=== PATIENT | female | born 1965 | race Caucasian/White ===

== ENCOUNTER 2020-03-25 13:52 | Emergency (ER) | payer SELFPAY ==
[~2020-03-25] VITALS: Ht 172.7 cm; Wt 76.0 kg
[2020-03-25 13:58] VITALS: BP 130/81
--- NOTE | 2020-03-25 14:31 | PHYS DOC ---
Past History Past Medical History: No Pertinent History Past Surgical History: Alcohol Use: Occasionally Drug Use: None General Adult EDM: Chief Complaint: LOWEREXTREMITY INJURY HPI: HPI: 55-year-old female presents with concern for cellulitis of the left lower extremity. She got 2 spider bites in the back of her lower leg and then cut with a coat traveler changer within a couple days of each other in similar locations. This all happened a couple weeks ago. She presents today because she is concerned with how long it is taking to heal. She does not have a fever or chills. The wounds are improving. They are shrinking but not expanding. She has no other complaints. Review of Systems: Review of Systems: Constitutional: Denies fever or chills Eyes: Denies change in visual acuity HENT: Denies nasal congestion or sore throat Respiratory: Denies cough or shortness of breath Cardiovascular: Denies chest pain or edema GI: Denies abdominal pain, nausea, vomiting, bloody stools or diarrhea : Denies dysuria Musculoskeletal: Denies back pain or joint pain Integument: Wounds left lower extremity Neurologic: Denies headache, focal weakness or sensory changes Endocrine: Denies polyuria or polydipsia Lymphatic: Denies swollen glands Psychiatric: Denies depression or anxiety Heart Score: Risk Factors: Risk Factors: DM, Current or recent (<one month) smoker, HTN, HLP, family history of CAD, obesity. Risk Scores: Score 0 - 3: 2.5% MACE over next 6 weeks - Discharge Home Score 4 - 6: 20.3% MACE over next 6 weeks - Admit for Clinical Observation Score 7 - 10: 72.7% MACE over next 6 weeks - Early Invasive Strategies Allergies: Allergies: Allergies Coded Allergies Type Severity Reaction Last Updated Verified Penicillins Allergy Intermediate Hives 11/27/14 Yes Physical Exam: PE: Constitutional: Well developed, well nourished, no acute distress, non-toxic appearance. [] HENT: Normocephalic, atraumatic, bilateral external ears normal, oropharynx [address], no oral exudates, nose normal. [] Eyes: PERRLA, EOMI, conjunctiva normal, no discharge. [] Neck: Normal range of motion, no tenderness, supple, no stridor. [] Cardiovascular:Heart rate regular rhythm, no murmur [] Lungs & Thorax: Bilateral breath sounds clear to auscultation [] Abdomen: Bowel sounds normal, soft, no tenderness, no masses, no pulsatile masses. [] Skin: Warm, dry, pink borders around wounds of the anterior and posterior left lower leg. No sign of infection. [] Back: No tenderness, no CVA tenderness. [] Extremities: No tenderness, no cyanosis, no clubbing, ROM intact, no edema. [] Neurologic: Alert and oriented X 3, normal motor function, normal sensory function, no focal deficits noted. [] Psychologic: Affect normal, judgement normal, mood normal. [] EKG: EKG: [] Radiology/Procedures: Radiology/Procedures: [] Course & Med Decision Making: Course & Med Decision Making Pertinent Labs and Imaging studies reviewed. (See chart for details) The patient has been keeping these wounds covered and using triple antibiotic. Honestly I think she is been doing a great job. This is just delayed healing due to the type of wound. It does not appear infected. The borders of the wound look good. I do not believe any further treatment would be beneficial. She is stable for discharge at this time. [] Dragon Disclaimer: Dragon Disclaimer: This electronic medical record was generated, in whole or in part, using a voice recognition dictation system. Departure Departure: Impression: Primary Impression: Abrasion, left lower leg, initial encounter Disposition: 01 HOME/RESIDENCE PRIOR TO ADM Condition: STABLE Referrals: PCP,NO (PCP) Patient Instructions: Abrasion, [id number] Justification of Admission: Justification of Admission: Justification of Admission Dx: N/A GUILLERMO SINGH DO Mar 25, 2020 14:31
== END 2020-03-25 14:36 | disposition home or self-care (01) ==
LOC: ER 13:52
DX: S80.812A Abrasion, left lower leg, initial encounter (principal); Z88.0 Allergy status to penicillin; W26.8XXA Contact with other sharp object(s), not elsewhere classified, initial encounter; Y93.89 Activity, other specified; Y92.89 Other specified places as the place of occurrence of the external cause; Y99.8 Other external cause status
CPT/HCPCS: 99281

== ENCOUNTER 2020-09-07 10:39 | Inpatient (IN) | payer SELFPAY ==
[2020-09-07] VITALS (11 sets, daily range): BP systolic 88–126; BP diastolic 61–95
[~2020-09-07] VITALS: Ht 170.2 cm; Wt 83.2 kg
--- NOTE | 2020-09-07 10:46 | PHYS DOC ---
Past History Past Medical History: No Pertinent History Past Surgical History: Alcohol Use: Occasionally Drug Use: None Adult General Chief Complaint Chief Complaint: ABDOMINAL PAIN HPI HPI Patient is a 55-year-old female presenting for substernal chest pressure. Nothing known makes better or worse. Onset was proximately 2 hours prior to arrival and worsening. Pain is focal nonradiating and "feels like there is a ball underneath my breastbone". She has never had anything like this before. Associated symptoms include increased anxiety, shortness of breath and nausea. Patient denies COVID-19 contact, fever, syncope, hemoptysis, history of blood clot, lower extremity edema, urinary symptoms, changes in motor or sensory function. She admits history of tobacco use, no alcohol or illicit drug use. Denies any recent febrile illness, no history of passing out with physical exertion, no family history of early cardiac disease. Review of Systems Review of Systems Fourteen body systems of review of systems have been reviewed. See HPI for pertinent positives and negative responses, other gunter all other systems are negative, non-pertinent or non-contributory Current Medications Current Medications Current Medications Medications (Trade) Dose Ordered Sig/Gianluca Start Time Stop Time Status Last Admin Dose Admin Aspirin (Aspirin Chewable) 324 mg 1X ONCE 09/07/20 11:00 09/07/20 11:08 DC 09/07/20 11:11 Aspirin (Aspirin Enteric Coated) 81 mg STK-MED ONCE 09/07/20 11:06 09/07/20 11:06 DC Diltiazem HCl (Cardizem Iv Push) 20 mg 1X ONCE 09/07/20 11:00 09/07/20 11:07 DC 09/07/20 11:03 Diltiazem HCl 125 mg/Sodium Chloride 125 ml @ 5 mls/hr CONT PRN 09/07/20 11:15 09/07/20 12:28 Heparin Sodium (Porcine) (Heparin Sodium) 2,050 unit PRN Q6HRS PRN 09/07/20 12:15 09/07/20 13:25 DC Heparin Sodium/ Dextrose 250 ml @ 9.924 mls/ hr CONT PRN 09/07/20 12:15 09/07/20 13:25 DC Nitroglycerin (Nitrostat) 0.4 mg PRN Q5MIN PRN 09/07/20 12:45 09/08/20 12:44 Allergies Allergies Allergies Coded Allergies Type Severity Reaction Last Updated Verified Penicillins Allergy Intermediate Hives 11/27/14 Yes Physical Exam Physical Exam Constitutional: Well developed, well nourished, no acute distress, non-toxic appearance. HENT: Normocephalic, atraumatic, bilateral external ears normal, oropharynx moist, no oral exudates, nose normal. Eyes: PERRLA, EOMI, conjunctiva normal, no discharge. Neck: Normal range of motion, no tenderness, supple, no stridor. Cardiovascular: Heart rate tachycardic, irregular rhythm, no murmurs rubs or gallops Lungs & Thorax: Increased work of breathing, accessory muscle use of neck and abdomen, crackles bilaterally and mild respiratory distress Abdomen: Bowel sounds normal, soft, no tenderness, no masses, no pulsatile m asses. Nonsurgical abdomen, no peritoneal signs Skin: Warm, dry, no erythema, no rash. Back: No tenderness, no CVA tenderness. Extremities: No tenderness, no cyanosis, no clubbing, ROM intact, no edema. Neurologic: Alert and oriented X 3, grossly normal motor & sensory function, no focal deficits noted. Psychologic: Anxious affect and mood Current Patient Data Vital Signs Vital Signs Date Time Temp Pulse Resp B/P (MAP) Pulse Ox O2 Delivery O2 Flow Rate FiO2 09/07/20 11:03 188 139/91 09/07/20 10:48 97.4 178 26 139/91 (107) 99 Lab Results Laboratory Tests Test 09/07/20 10:55 White Blood Count 12.4 x10^3/uL Red Blood Count 4.74 x10^6/uL Hemoglobin 14.5 g/dL Hematocrit 44.3 % Mean Corpuscular Volume 93 fL Mean Corpuscular Hemoglobin 31 pg Mean Corpuscular Hemoglobin Concent 33 g/dL Red Cell Distribution Width 13.5 % Platelet Count 191 x10^3/uL Neutrophils (%) (Auto) 63 % Lymphocytes (%) (Auto) 28 % Monocytes (%) (Auto) 8 % Eosinophils (%) (Auto) 0 % Basophils (%) (Auto) 1 % Neutrophils # (Auto) 7.8 x10^3uL Lymphocytes # (Auto) 3.4 x10^3/uL Monocytes # (Auto) 0.9 x10^3/uL Eosinophils # (Auto) 0.0 x10^3/uL Basophils # (Auto) 0.1 x10^3/uL Prothrombin Time 11.0 SEC Prothromb Time International Ratio 1.1 Activated Partial Thromboplast Time 22 SEC Sodium Level 136 mmol/L Potassium Level 4.7 mmol/L Chloride Level 104 mmol/L Carbon Dioxide Level 22 mmol/L Anion Gap 10 Blood Urea Nitrogen 24 mg/dL Creatinine 0.9 mg/dL Estimated GFR (Cockcroft-Gault) 65.0 BUN/Creatinine Ratio 27 Glucose Level 168 mg/dL Calcium Level 9.0 mg/dL Magnesium Level 2.0 mg/dL Total Bilirubin 0.6 mg/dL Aspartate Amino Transf (AST/SGOT) 32 U/L Alanine Aminotransferase (ALT/SGPT) 59 U/L Alkaline Phosphatase 89 U/L Troponin I Quantitative 0.023 ng/mL [id number]-[id number]-Type Natriuretic Peptide 4129 pg/mL Total Protein 7.5 g/dL Albumin 3.7 g/dL Albumin/Globulin Ratio 1.0 Current Medications Medications (Trade) Dose Ordered Sig/Gianluca Route PRN Reason Start Time Stop Time Status Last Admin Dose Admin Diltiazem HCl (Cardizem Iv Push) 25 mg STK-MED ONCE IVP 09/07/20 10:56 09/07/20 10:56 DC Aspirin (Aspirin Chewable) 324 mg 1X ONCE PO 09/07/20 11:00 09/07/20 11:08 DC 09/07/20 11:11 Diltiazem HCl (Cardizem Iv Push) 20 mg 1X ONCE IVP 09/07/20 11:00 09/07/20 11:07 DC 09/07/20 11:03 Diltiazem HCl 125 mg/Sodium Chloride 125 ml @ 5 mls/hr CONT PRN IV SEE I/O RECORD 09/07/20 11:15 09/07/20 12:28 Aspirin (Aspirin Enteric Coated) 81 mg STK-MED ONCE PO 09/07/20 11:06 09/07/20 11:06 DC Heparin Sodium/ Dextrose 250 ml @ 9.924 mls/ hr CONT PRN IV SEE I/O RECORD 09/07/20 12:15 09/07/20 13:25 DC Heparin Sodium (Porcine) (Heparin Sodium) 4,000 unit 1X ONCE IV 09/07/20 12:15 09/07/20 13:25 DC Heparin Sodium (Porcine) (Heparin Sodium) 2,050 unit PRN Q6HRS PRN IV FOR PTT LESS THAN 24 SECONDS 09/07/20 12:15 09/07/20 13:25 DC Nitroglycerin (Nitrostat) 0.4 mg PRN Q5MIN PRN SL CHEST PAIN 09/07/20 12:45 09/08/20 12:44 EKG EKG EKG ordered and interpreted by myself at 1103 hrs. as an irregular rhythm with a ventricular rate of 182 bpm, prolonged QTC at 470 otherwise unremarkable intervals, right axis deviation, T wave inversions noted in leads III, aVF. No STEMI Radiology/Procedures Radiology/Procedures EXAM: Chest, single view. HISTORY: Shortness of breath. COMPARISON: None. FINDINGS: A frontal view of the chest is obtained. There is bilateral multifocal interstitial infiltrate. There is cardiomegaly. There is no consolidation, pleural effusion or pneumothorax. There is a healed left clavicle fracture. IMPRESSION: Bilateral multifocal interstitial infiltrate and cardiomegaly. Electronically signed by: Suzie Shell MD (09/07/2020 11:19 AM) [id number] Heart Score HEART Score for Chest Pain: HEART Score for Chest Pain Response (Comments) Value History Moderately Suspicious 1 ECG Nonspecific Repolarizatio 1 Age >45 - < 65 1 Risk Factors 1 or 2 Risk Factors 1 Troponin < Normal Limit 0 Total 4 Risk Factors: Risk Factors: DM, Current or recent (<one month) smoker, HTN, HLP, family history of CAD, obesity. Risk Scores: Risk Factors: DM, Current or recent (<one month) smoker, HTN, HLP, family history of CAD, obesity. Course & Med Decision Making Course & Med Decision Making Pertinent Labs and Imaging studies reviewed. (See chart for details) Discussed most likely diagnosis of new onset atrial fibrillation with RVR. I am concerned about potential new diagnosis of heart failure Patient responded to ER intervention, tolerated Cardizem bolus and subsequent drip with adequate rate control. I discussed need for continued medical management and cardiology consultation I discussed case with manager medical device at [facility], joint decision to admit to [facility] for further diagnostic work-up and medical management which would include continued anticoagulation and echocardiogram I contacted hospitalist, Dr. Martin, at [facility] who agreed for need of admission and accepted patient under his care. He requested that I discontinue heparin drip in turn for Lovenox I updated patient on proposed plan of care, she was amenable for admission for continued work-up. All questions and concerns addressed prior to ER transport to [facility] for admission Critical Care Time This patient required critical care. Due to the fact that the patient required a significant amount of one on one physician - patient contact time, ordering and review of studies, arranging urgent treatment with development of a management plan, evaluation of patients response to treatment with frequent reassessments, and discussions with other providers this patient required critical care time in excess of 30 minutes. Critical care time was indicated due to the inherent instability and/or potential for instability in this patient. The critical care time that is allocated to this patient is above and beyond any time spent on any other billable procedures performed on this patient. Dragon Disclaimer Dragon Disclaimer This electronic medical record was generated, in whole or in part, using a voice recognition dictation system. Departure Departure: Impression: Primary Impression: Atrial fibrillation with RVR Additional Impression: New onset of congestive heart failure Disposition: 09 ADMITTED INPT THIS HOSP Admitting Physician: Jackson Martin Condition: STABLE Referrals: PCP,NO (PCP) Problem Qualifiers SNEHAL RYAN DO Sep 07, 2020 10:46
[2020-09-07] MEDS ORDERED: dilTIAZem 25 MG/5 ML VIAL IVP ONE ×2 (10:56→11:00)
[2020-09-07] MEDS ORDERED: ASPIRIN CHEWABLE 81 MG TABLET. PO ONE (11:00)
--- NOTE | 2020-09-07 11:04 | EKG ---
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
[2020-09-07] MEDS ORDERED: ASPIRIN ENTERIC COATED 81 MG TABLET.DR. PO ONE (11:06)
[2020-09-07] MEDS: dilTIAZem VIAL 125 MG in IV NORMAL SALINE 100ML 100 ML IV PRN ×4 (11:19→12:28)
[2020-09-07 11:21] LABS: BASO # 0.1 x10^3/uL (0.0-0.2); BASO % 1 % (0-3); EOS % 0 % (0-3); HEMATOCRIT 44.3 % (36.0-47.0); HEMOGLOBIN 14.5 g/dL (12.0-15.5); LYMPH # 3.4 x10^3/uL (1.0-4.8); LYMPH % 28 % (24-48); MEAN CORPUSCULAR HEMOGLOBIN 31 pg (25-35); MEAN CORPUSCULAR HGB CONC 33 g/dL (31-37); MEAN CORPUSCULAR VOLUME 93 fL (79-100); MONO # 0.9 x10^3/uL (0.0-1.1); MONO % 8 % (0-9); NEUT # 7.8 x10^3uL (1.8-7.7); NEUT % 63 % (31-73); PLATELET COUNT 191 x10^3/uL (140-400); RED BLOOD COUNT 4.74 x10^6/uL (3.50-5.40); RED CELL DISTRIBUTION WIDTH 13.5 % (11.5-14.5); WHITE BLOOD COUNT 12.4 x10^3/uL (4.0-11.0)
--- NOTE | 2020-09-07 11:22 | RAD ---
EXAM: Chest, single view. HISTORY: Shortness of breath. COMPARISON: None. FINDINGS: A frontal view of the chest is obtained. There is bilateral multifocal interstitial infiltr ate. There is cardiomegaly. There is no consolidation, pleural effusion or pneumothorax. There is a h ealed left clavicle fracture. IMPRESSION: Bilateral multifocal interstitial infiltrate and cardiomegaly. Electronically signed by: Suzie Shell MD (09/07/2020 11:19 AM) [id number]
[2020-09-07] MEDS ORDERED: HEPARIN for IV BOLUS 10,000 UNIT/10 ML VIAL. IV ONE (12:15)
[2020-09-07] MEDS ORDERED: HEPARIN 25,000UTS/250ML PREMIX 250 ML IV PRN ×2 (12:15→18:00)
[2020-09-07] MEDS ORDERED: HEPARIN for IV BOLUS 10,000 UNIT/10 ML VIAL. IV PRN (12:15)
[2020-09-07 12:23] LABS: ALBUMIN 3.7 g/dL (3.4-5.0); CREATININE 0.9 mg/dL (0.6-1.0); POTASSIUM 4.7 mmol/L (3.5-5.1); TOTAL BILIRUBIN 0.6 mg/dL (0.2-1.0); TOTAL PROTEIN 7.5 g/dL (6.4-8.2)
[2020-09-07] MEDS ORDERED: NITROGLYCERIN SUBLINGUAL 0.4 MG BOTTLE OF 25. SL PRN (12:45)
--- NOTE | 2020-09-07 13:30 | HP ---
ADMIT DATE: 09/07/2020 ATTENDING PHYSICIAN: Dr. Patel. CHIEF COMPLAINT: Chest pressure and abdominal pain. HISTORY OF PRESENT ILLNESS: The patient is a 55-year-old female who has been fairly healthy for the last 4 days. She has had increasing dyspnea and orthopnea at rest. She also complained of substernal chest pressure, onset 2 hours prior to arrival. She has risk factors including heavy smoking history. She is not a drinker. No recent COVID exposure, fevers, chills, edema or neurologic symptoms. No illicit drug use. In the ED, her chest x-ray showed cardiomegaly, generous heart size and vascular congestion, no acute infiltrates identified. She was also found to be in atrial fibrillation with rapid ventricular rate, rate between 150 and 170 per minute, irregularly irregular. She was given Cardizem. By the time I saw her, she was feeling a little better, pressure has subsided and rate was down to 120. Heparin has been ordered. Cardiology has been consulted. She is admitted then for new-onset cardiomyopathy, etiology to be determined. She also has concomitant atrial fibrillation with rapid ventricular rate. PAST MEDICAL HISTORY: Somewhat sad. Her father when he was 37 in an automobile accident. Mother of lymphoma at age 43. SOCIAL HISTORY: She is . 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 She smokes a pack of cigarettes daily. She is not on any prescription meds. She denies any alcohol use. She is very straightforward. ALLERGIES: SHE HAS ALLERGY TO PENICILLIN, WHICH CAUSES A RASH. REVIEW OF SYSTEMS: Significant for the orthopnea. No pedal edema. Some nausea, no vomiting. No recent travel. No COVID exposure. All other systems reviewed and found to be negative. PHYSICAL EXAMINATION: GENERAL: When I saw her, this is a pleasant, middle-aged female. VITAL SIGNS: Showed a blood pressure of 139/91, pulse is between 160 and 170 when she got here. By the time I saw her, the pulse rate was down to 120, irregularly irregular, oxygen saturation 99% on room air, temperature 97.4 degrees Fahrenheit. HEENT: Head is without trauma. Pupils are reactive. Sclerae nonicteric. Oropharynx is clear. NECK: Supple, no bruits identified. LUNGS: Coarse rhonchi at bases. CARDIOVASCULAR: Showed tachycardic rhythm, distant. No obvious gallops. Peripheral pulses are palpable and full. ABDOMEN: Soft, scaphoid, nontender, no organomegaly. Bowel sounds are hypoactive. EXTREMITIES: Showed no cyanosis. NEUROLOGIC: Focally intact. Speech is fluent. Back Digger Operator intact. SKIN: Warm and dry. PERTINENT LABORATORY STUDIES: Hemoglobin is 14.5 gram per deciliter with a white count of 12,400. Electrolytes are within normal range. Creatinine 0.9 mg percent. The first set of cardiac enzymes was nonischemic at 0.023. The BNP is markedly elevated at 4129. ASSESSMENT: 1. A 55-year-old female with atrial fibrillation with rapid ventricular rate. 2. Cardiomyopathy with elevated BNP. She has cardiomegaly on chest x-ray. 3. Whether this is viral in nature or ischemic remains to be seen. 4. Probable hypertension. 5. Tobacco addiction. PLAN: 1. Admit to the ICU. 2. Cardizem drip to slow ventricular rate. 3. Echocardiogram. 4. Empiric Lovenox. 5. Cardiology consultation. 6. Preload and afterload reduction. I think she would benefit with a concomitant beta blockade and the diuretics. DAVE PATEL MD DR: MYNOR/otf JOB#: [id number] / [id number]
--- NOTE | 2020-09-07 14:00 | NUR ---
patient brought to ICU bed 4 from ED with ED staff and EMS. Pt A&Ox4, 4/5 pressure pain in epigastric area. Pt is on a cardizem gtt at 15mg/hr for A Fib RVR. pt oriented to room, medications and medical history reviewed with patient. The patient, ROBSON OREILLY, 55 y/o, F admitted by DAVE PATEL MD, was given written information regarding hospital policies, unit procedures and contact persons. Valuables were checked and left with patient. will continue to monitor
[2020-09-07 14:05] LABS: BARBITURATES NEG (NEG); BENZODIAZEPINES NEG (NEG); CANNABINOIDS POS (NEG); COCAINE NEG (NEG); METHADONE NEG (NEG); OPIATES NEG (NEG); PHENCYCLIDINE NEG (NEG)
[2020-09-07 14:12] LABS: AMPHETAMINE/METHAMPHETAMINE NEG (NEG)
[2020-09-07] MEDS ORDERED: ENOXAPARIN 40 MG/0.4 ML SYRINGE. SQ SCH (14:30)
[2020-09-07] MEDS ORDERED: METOPROLOL TART IMMED RELEASE 50 MG TABLET PO ONE (14:30)
[2020-09-07] MEDS ORDERED: FUROSEMIDE 40 MG/4 ML VIAL IVP ONE (14:30)
[2020-09-07] MEDS: ACETAMINOPHEN 325 MG TABLET PO PRN (16:41)
[2020-09-07] MEDS ORDERED: MORPHINE SULFATE 2 MG/ML DISP.SYRIN. IV PRN (17:15)
--- NOTE | 2020-09-07 17:15 | NUR ---
Pt complaining of 4/5 pressure in epigastric area that feels like "a knot". Patient vomited. Dr Martin called and notified of vomiting and ordered Zofran 4mg IV Q4 PRN, stat EKG and stat troponin and to stop cardizem gtt due to blood pressure. Also ordered for morphine 2mg IV PRN if need be for pain. Dr Martin stated to call back with troponin level when resulted. Will continue to monitor.
[2020-09-07] MEDS: ONDANSETRON PF 4 MG/2 ML VIAL. IVP PRN (17:33)
--- NOTE | 2020-09-07 17:39 | EKG ---
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
[2020-09-07] MEDS ORDERED: LABETALOL 20 MG/4 ML DISP.SYRIN. IVP PRN (18:00)
[2020-09-08] VITALS (15 sets, daily range): BP systolic 83–102; BP diastolic 38–84
[2020-09-08] MEDS: METOPROLOL TART IMMED RELEASE 50 MG TABLET PO SCH ×2 (03:37→08:22)
--- NOTE | 2020-09-08 06:05 | NUR ---
Pt awake in bed at change of shift watching TV. Pt A&Ox4, cooperative with care and assessments. Pt was taken off Cardizem gtt and started on PO Metoprolol. BP low during entire shift but with MAP>65, only able to given half of scheduled dose (25mg). Pt denies c/o chest pain currently but dose c/o Headache. Pt slept off and on during night. Anxious at times about bill and the possibilities of having new prescriptions, case management consulted. Cardiology to see today for possible Echo, Dr Chen called last to check on pt and update given. Hep gtt running per Dr Martin's orders.
[2020-09-08 06:18] LABS: CALCIUM 8.2 mg/dL (8.5-10.1); CREATININE 1.2 mg/dL (0.6-1.0); GFR 46.6; POTASSIUM 4.7 mmol/L (3.5-5.1)
[2020-09-08] MEDS ORDERED: FUROSEMIDE 40 MG/4 ML VIAL IVP SCH (09:00)
--- NOTE | 2020-09-08 09:00 | NUR ---
Dr. Martin here to see patient, pt is declining. Pt continues to be in AFIB RVR, hypotension, epigastric pain with gas (pt belching frequently), headache. Pt was given zofran, gas x, tylenol, nicotene patch to rt shoulder, lopressor 50mg po and lasix 80mg IV and remains on heparin drip. Dr. Chen here as well. Both Drs have discussed pt and have agreed that pt needs to be transferred to [facility] for higher level of care. Dr. Martin spoke with Dr. Louie who agreed to accept pt. Awaiting bed assignment in ICU.
[2020-09-08] MEDS: ACETAMINOPHEN 325 MG TABLET PO PRN (10:11)
[2020-09-08] MEDS: ONDANSETRON PF 4 MG/2 ML VIAL. IVP PRN (10:11)
[2020-09-08] MEDS ORDERED: NICOTINE 21MG PATCH. TD SCH (10:30)
[2020-09-08] MEDS ORDERED: SIMETHICONE 80 MG TAB.CHEW PO PRN (10:45)
--- NOTE | 2020-09-08 10:54 | PN ---
DATE: NO DICTATION DAVE PATEL MD DR: MYNOR/otf JOB#: [id number] / [id number]
--- NOTE | 2020-09-08 12:00 | NUR ---
received room assignment at [facility] ICU room 115. Report was called to CRISTINA Tavera at 1200. EMS was called to transport pt to [facility]. Dispatch said all trucks are currently busy and she is unsure of when one will be available.
--- NOTE | 2020-09-08 12:45 | NUR ---
EMS here to transport pt to [facility] ICU. All belongings were sent with patient. Heparin drip continues to infuse at 1000 units/hr. EMS departed at 1250.
--- NOTE | 2020-09-08 13:33 | DS ---
DATE OF DISCHARGE: 09/08/2020 ATTENDING PHYSICIAN: Dr. Patel. FINAL DISCHARGE DIAGNOSES: 1. Atrial fibrillation with rapid ventricular rate. 2. Cardiomyopathy with elevated BNP. 3. Ischemic cardiomyopathy. 4. Hypertension. 5. Tobacco addiction. 6. Hypotension, most likely cardiogenic. HISTORY AND PHYSICAL: This 55-year-old female presented with increasing shortness of breath, orthopnea, dyspnea with exertion. She was found to be in atrial fibrillation with rapid ventricular rate. Cardizem drip was started. She was admitted for further treatment and evaluation. PHYSICAL EXAMINATION: Please see the dictated note. PERTINENT LABORATORY AND X-RAY STUDIES: Chest x-ray demonstrated cardiomegaly, vascular congestion, bilateral pleural effusions. Hemoglobin is 14.5 g/dL, white count 12,400. Electrolytes: Sodium 137 mEq, potassium 4.7, creatinine 1.2 mg/dL, nonfasting blood sugar 132. Three sets of troponin were within the limits of nonischemia. TSH was 2.5. COURSE IN THE HOSPITAL: The patient was admitted to the ICU. She was initially started on Cardizem with some improvement of the heart rate, but because of blood pressure issues, this was held back. She was started on a heparin drip and this will be continued upon transfer. Dr. Chen, the Cardiology Service saw her in consultation the next morning. He felt that this patient is quite ill and needed a higher level of care. Arrangements were then made for transfer to [facility] ICU for further treatment and evaluation. Echocardiogram was ordered, but has not been done at the time of discharge. On the second hospital day, the patient is agreeable to go by ambulance to [facility] ICU for further treatment and evaluation. She will be admitted to the hospitalist service as well as Dr. Chen. She was discharged then in stable condition with explicit instructions and followup care at [facility]. DAVE PATEL MD DR: MYNOR/otf JOB#: [id number] / [id number]
== END 2020-09-08 12:55 | disposition short-term general hospital (02) | DRG 310 ==
LOC: ER 10:39 → ICU 12:53
PROVIDERS: ADMIT Hospitalist; ATTEND Hospitalist
DX: I48.91 Unspecified atrial fibrillation (principal); I50.9 Heart failure, unspecified; F17.210 Nicotine dependence, cigarettes, uncomplicated; I25.5 Ischemic cardiomyopathy; I11.0 Hypertensive heart disease with heart failure; I95.9 Hypotension, unspecified; Z80.7 Family history of other malignant neoplasms of lymphoid, hematopoietic and related tissues; Z88.8 Allergy status to other drugs, medicaments and biological substances; Z98.891 History of uterine scar from previous surgery
CPT/HCPCS: 36415; 71045; 80048; 80053; 80307; 83735; 83880; 84443; 84484; 85025; 85610; 85730; 93005; 96365; 96366; J1650; J1940; J2405; J3490; 99285-25

== ENCOUNTER 2020-11-09 10:24 | Emergency (ER) | payer SELFPAY ==
[2020-09-08 12:00] VITALS: BP 97/67
[~2020-11-09] VITALS: Ht 170.2 cm; Wt 78.1 kg
--- NOTE | 2020-11-09 10:37 | PHYS DOC ---
Past History Past Medical History: No Pertinent History, A-Fib Past Surgical History: Smoking: Less than 1pk/day Additional Smoking Information: Lifetime 2 ppd. Has reduced to around hald a ppd Alcohol Use: None Drug Use: None, Marijuana General Adult EDM: Chief Complaint: ABDOMINAL PAIN HPI: HPI: Patient is a 55 year old female who presents with abdominal pain. She reports having abdominal pain since September which prompted a visit to ER where she was diagnosed with afib and transferred to [facility] for further care resulting in a heart cath. She has continued having abdominal pain since that time that she feels hasn't been fully addressed. Describes her abdominal pain as constant, achy, and located in superior abdominal/sternum region. States that the pain sometimes remits--but is relatively constant. She complains of feelings of discomfort with satiety. Pain is worse with eating greasy foods and laying down. States sometimes that milk improves symptoms. Rates pain as 5/10. She has a history of 3 previous traditional C-sections. She has a history of tobacco abuse, and has reduced from 2 ppd to roughly .5 ppd. States that she "will not be admitted to the hospital under any condition" and simply wants her abdominal pain addressed during this visit. Review of Systems: Review of Systems: Constitutional: Denies fever or chills Eyes: Denies redness or eye pain HENT: Denies nasal congestion or sore throat Respiratory: Denies cough or shortness of breath Cardiovascular: Denies chest pain or palpitations GI: Denies vomiting. Reports abdominal pain, nausea, diarrhea : Denies dysuria or hematuria Musculoskeletal: Denies back pain or joint pain Integument: Denies rash or skin lesions Neurologic: Denies headache, focal weakness or sensory changes Complete systems were reviewed and found to be within normal limits, except as documented in this note. Family History: Family History: Mother- [place] Father- from car accident Current Medications: Current Meds: Digoxin Lasix Allergies: Allergies: Allergies Coded Allergies Type Severity Reaction Last Updated Verified Penicillins Allergy Intermediate Hives 09/07/20 Yes Physical Exam: PE: Constitutional: Well developed, well nourished, no acute distress, non-toxic appearance HENT: Normocephalic, atraumatic Eyes: PERRL, EOMI, conjunctiva normal, no discharge Neck: Normal range of motion, no tenderness, supple Lungs & Thorax: No respiratory distress, equal chest rise and fall. Wheezing b/l Abdomen: Soft. Guarding and tenderness upper midline abdomen/substernal region Skin: Warm, dry, no erythema, no rash Back: No tenderness, no CVA tenderness Extremities: No tenderness, ROM intact, no edema Neurologic: Alert and oriented X 3, normal motor function, normal sensory function, no focal deficits noted Psychologic: Affect normal, judgment normal EKG: EKG: [] Radiology/Procedures: Radiology/Procedures: [] Heart Score: C/O Chest Pain: N/A Course & Med Decision Making: Course & Med Decision Making Pertinent Labs and Imaging studies reviewed. (See chart for details) Patient was interviewed by medical student. Labs, EKG, CTA, chest with CT, abdomen pelvis and Cardizem bolus/drip were ordered for the patient. Upon nurse attempting to draw blood patient subsequently reported "I'm not going to be admitted and don't want to waste anybody's time so I am going to leave." Patient subsequently arose from bed, removed EKG monitors, and eloped from apartment AMA before visiting with attending physician. Annette Disclaimer: Annette Disclaimer: This electronic medical record was generated, in whole or in part, using a voice recognition dictation system. Departure Departure: Impression: Primary Impression: Atrial fibrillation with RVR Additional Impressions: Abdominal pain Qualified Codes: R10.10 - Upper abdominal pain, unspecified Eloped from emergency department Disposition: 07 AMA/ELOPED/LWBS Condition: GUARDED Referrals: PCP,NO (PCP) Scripts No Active Prescriptions or Reported Meds JOHNATHON HUNT DO Nov 09, 2020 10:37
[2020-11-09] MEDS ORDERED: ONDANSETRON PF 4 MG/2 ML VIAL. IVP ONE (10:45)
[2020-11-09] MEDS ORDERED: IV NORMAL SALINE 1,000ML 1,000 ML IV ONE (10:45)
[2020-11-09] MEDS ORDERED: FAMOTIDINE 20 MG/2 ML VIAL IVP ONE (10:45)
[2020-11-09] MEDS ORDERED: ASPIRIN ENTERIC COATED 325 MG TABLET.DR. PO ONE (10:45)
[2020-11-09] MEDS ORDERED: dilTIAZem VIAL 125 MG in IV NORMAL SALINE 100ML 100 ML IV PRN (10:45)
[2020-11-09] MEDS ORDERED: dilTIAZem 25 MG/5 ML VIAL IVP ONE (10:45)
[2020-11-09] MEDS ORDERED: IOHEXOL 350 MG/ML 100 ML VIAL. IV ONE (11:00)
== END 2020-11-09 10:45 | disposition left against medical advice (07) ==
LOC: ER 10:24
DX: I48.20 Chronic atrial fibrillation, unspecified (principal); R10.10 Upper abdominal pain, unspecified; R19.7 Diarrhea, unspecified; F17.210 Nicotine dependence, cigarettes, uncomplicated; Z98.890 Other specified postprocedural states; Z88.0 Allergy status to penicillin
CPT/HCPCS: 99281

== ENCOUNTER 2021-07-02 11:00 | Emergency (ER) | payer OTHER ==
[~2021-07-02] VITALS: Ht 170.2 cm; Wt 73.5 kg
[2021-07-02 12:14] LABS: BASO % 1 % (0-3); EOS # 0.1 x10^3/uL (0.0-0.7); EOS % 2 % (0-3); HEMATOCRIT 31.3 % (36.0-47.0); HEMOGLOBIN 10.2 g/dL (12.0-15.5); LYMPH # 0.9 x10^3/uL (1.0-4.8); LYMPH % 12 % (24-48); MEAN CORPUSCULAR HEMOGLOBIN 27 pg (25-35); MEAN CORPUSCULAR HGB CONC 33 g/dL (31-37); MEAN CORPUSCULAR VOLUME 82 fL (79-100); MONO # 0.6 x10^3/uL (0.0-1.1); MONO % 7 % (0-9); NEUT # 6.1 x10^3uL (1.8-7.7); NEUT % 78 % (31-73); PLATELET COUNT 407 x10^3/uL (140-400); RED BLOOD COUNT 3.83 x10^6/uL (3.50-5.40); WHITE BLOOD COUNT 7.8 x10^3/uL (4.0-11.0)
[2021-07-02] MEDS ORDERED: IV NORMAL SALINE 1,000ML 1,000 ML IV ONE ×2 (12:30→13:00)
[2021-07-02 12:35] LABS: CALCIUM 9.1 mg/dL (8.5-10.1); CREATININE 1.2 mg/dL (0.6-1.0); GFR 46.5; POTASSIUM 4.1 mmol/L (3.5-5.1)
[2021-07-02] MEDS ORDERED: PHYTONADIONE 5 MG/5 ML ORAL SOLN. PO ONE (13:00)
[2021-07-02] MEDS ORDERED: dilTIAZem 25 MG/5 ML VIAL IVP ONE (13:15)
[2021-07-02] MEDS ORDERED: PHYTONADIONE 10 MG/ML AMPUL. PO ONE (13:15)
--- NOTE | 2021-07-02 13:26 | EKG ---
[address] [address] Test Date: 2021-07-02 Test Time: 13:04:03 Pat Name: ROBSON OREILLY Department: Room: Gender: F Stars Coordinator: LAXMI : 1965 Requested By: REKHA LEON Order Number: [id number] Reading MD: Ha Bhatia Measurements Intervals [place] Rate: 125 P: 121 ID: [id number] QRS: 84 QRSD: 108 T: 76 QT: 322 QTc: 467 Interpretive Statements SUPRAVENTRICULAR TACHYCARDIA Electronically Signed On 07-09-2021 10:44:21 SIGN MANUFACTURER by Ha Bhatia
--- NOTE | 2021-07-02 13:56 | PHYS DOC ---
Past History Past Medical History: A-Fib Past Surgical History: , Other Additional Past Surgical Histo: heart valve rep 03/21 Smoking: Less than 1pk/day Alcohol Use: None Drug Use: Marijuana General Adult EDM: Chief Complaint: ABNORMAL LABS HPI: HPI: 56-year-old female past medical history of atrial flutter and mitral valve replacement on Coumadin, presents to the ED with complaints of elevated INR, (> 10) after patient had labs drawn in preop for a MANA and cardiac ablation at this morning. Follows with Dr. Pak, cardiology at . Reports her primary care physician Dr. Beltran had an INR drawn this past week, was 8. Went to preop this morning to draw labs and was told they would call her with the results. Denies any recent head or neck trauma or bleeding. Patient states "I' m very steady on my feet." Review of Systems: Review of Systems: Constitutional: Denies fever or chills Eyes: Denies change in visual acuity HENT: Denies nasal congestion or sore throat Respiratory: Denies cough or shortness of breath Cardiovascular: Denies chest pain or edema GI: Denies abdominal pain, nausea, vomiting, bloody stools or diarrhea : Denies hematuria vaginal bleeding Musculoskeletal: Denies back pain or joint pain Integument: Denies rash or diaphoresis Neurologic: Denies headache, focal weakness or sensory changes Endocrine: Denies polyuria or polydipsia Lymphatic: Denies swollen glands Psychiatric: Denies depression or anxiety Current Medications: Current Meds: Current Medications Medications (Trade) Dose Ordered Sig/Gianluca Start Time Stop Time Status Last Admin Dose Admin Diltiazem HCl (Cardizem Iv Push) 20 mg 1X ONCE 07/02/21 13:15 07/02/21 13:21 DC 07/02/21 13:28 20 MG Phytonadione (Mephyton Oral Soln) 2.5 mg 1X ONCE 07/02/21 13:00 07/02/21 13:01 Cancel Phytonadione (Vitamin K) 2.5 mg 1X ONCE 07/02/21 13:15 07/02/21 13:16 DC 07/02/21 13:15 2.5 MG Sodium Chloride 1,000 ml @ 1,000 mls/hr 1X ONCE 07/02/21 13:00 07/02/21 13:59 07/02/21 13:00 1,000 MLS/HR Allergies: Allergies: Allergies Coded Allergies Type Severity Reaction Last Updated Verified Penicillins Allergy Intermediate Hives 09/07/20 Yes Physical Exam: PE: Constitutional: Well developed, well nourished, no acute distress, non-toxic appearance. HENT: Normocephalic, atraumatic, no signs of head trauma Eyes: EOMI, conjunctiva normal, no discharge. Neck: Normal range of motion, supple, Cardiovascular: S1/2 present, tachycardic rhythm Lungs & Thorax: Speaking in full sentences, bilateral equal chest rise, no tachypnea or increased work of breathing Skin: Warm, dry, no erythema, no rash. [] Extremities: No tenderness, no cyanosis, no lower extremity edema Neurologic: Alert and oriented X 3, normal motor function, normal sensory function, no focal deficits noted. [] Psychologic: Affect normal, judgement normal, mood normal. [] Current Patient Data: Labs: Laboratory Tests Test 07/02/21 11:23 White Blood Count 7.8 x10^3/uL (4.0-11.0) Red Blood Count 3.83 x10^6/uL (3.50-5.40) Hemoglobin 10.2 g/dL (12.0-15.5) L Hematocrit 31.3 % (36.0-47.0) L Mean Corpuscular Volume 82 fL (79-100) Mean Corpuscular Hemoglobin 27 pg (25-35) Mean Corpuscular Hemoglobin Concent 33 g/dL (31-37) Red Cell Distribution Width 20.0 % (11.5-14.5) H Platelet Count 407 x10^3/uL (140-400) H Neutrophils (%) (Auto) 78 % (31-73) H Lymphocytes (%) (Auto) 12 % (24-48) L Monocytes (%) (Auto) 7 % (0-9) Eosinophils (%) (Auto) 2 % (0-3) Basophils (%) (Auto) 1 % (0-3) Neutrophils # (Auto) 6.1 x10^3uL (1.8-7.7) Lymphocytes # (Auto) 0.9 x10^3/uL (1.0-4.8) L Monocytes # (Auto) 0.6 x10^3/uL (0.0-1.1) Eosinophils # (Auto) 0.1 x10^3/uL (0.0-0.7) Basophils # (Auto) 0.0 x10^3/uL (0.0-0.2) Prothrombin Time > 120.0 SEC (9.4-11.4) H Prothrombin Time INR > 10.0 (0.9-1.1) *H Activated Partial Thromboplast Time 78 SEC (23-33) H Sodium Level 136 mmol/L (136-145) Potassium Level 4.1 mmol/L (3.5-5.1) Chloride Level 98 mmol/L (98-107) Carbon Dioxide Level 28 mmol/L (21-32) Anion Gap 10 (6-14) Blood Urea Nitrogen 24 mg/dL (7-20) H Creatinine 1.2 mg/dL (0.6-1.0) H Estimated GFR (Cockcroft-Gault) 46.5 Glucose Level 221 mg/dL (70-99) H Calcium Level 9.1 mg/dL (8.5-10.1) Vital Signs: Vital Signs Date Time Temp Pulse Resp B/P (MAP) Pulse Ox O2 Delivery O2 Flow Rate FiO2 07/02/21 13:31 126 16 113/81 (92) 100 07/02/21 11:10 98.0 Room Air EKG: EKG: [] Regular rhythm at 125 bpm, no axis deviation, QTC 467, concern for multifocal atrial tachycardia versus A. fib, no ST ovation or ST depression, no active chest pain or pressure Radiology/Procedures: Radiology/Procedures: [] Heart Score: C/O Chest Pain: No Risk Factors: Risk Factors: DM, Current or recent (<one month) smoker, HTN, HLP, family history of CAD, obesity. Risk Scores: Score 0 - 3: 2.5% MACE over next 6 weeks - Discharge Home Score 4 - 6: 20.3% MACE over next 6 weeks - Admit for Clinical Observation Score 7 - 10: 72.7% MACE over next 6 weeks - Early Invasive Strategies Course & Med Decision Making: Course & Med Decision Making Pertinent Labs and Imaging studies reviewed. (See chart for details) Concern for supratherapeutic INR in the setting of tachycardia. Repeat heart rate after 10 of Cardizem was 99/101 bpm. Patient was given oral vitamin K. Patient has no external signs of bleeding. Will discharge home with strict ED return precautions were given for any trauma, fall, head injury, bleeding, palpitations, chest pain, dyspnea or syncope. Encouraged urgent outpatient follow-up with PMD in 24 hours for repeat INR and cardiology. Life-threatening processes were considered but are low suspicion at this time, given history, physical exam and ED workup. Pt was educated on all prescription medications and adverse effects. All patient's questions were answered and pt was stable at time of discharge. Life/limb-threatening differential includes but is not limited to, thrombocytopenia, drug related adverse event, gastrointestinal bleeding, posterior epistaxis, hemorrhagic shock, DIC, life-threatening rash, arterial injury or trauma. I have spoken with the patient and/or caregivers. I explained the patient's condition, diagnoses and treatment plan based on the information available to me at this time. I have answered the patient and/or caregiver's questions and addressed any concerns. The patient and/or caregivers have a good understanding of patient's diagnosis, condition and treatment plan as can be expected at this point. Vital signs have been stable. Patient's condition is stable and appropriate for discharge from the emergency department. Patient will pursue further outpatient evaluation with primary care physician or other designated or consulting physician as outlined in the discharge instructions. The patient and/or caregivers are agreeable to this plan of care and follow-up instructions have been explained in detail. The patient and/or caregivers have received these instructions in written form and have expressed an understanding of the discharge instructions. The patient and/or caregivers are aware that any significant change of condition or worsening of symptoms should prompt immediate return to this or the closest emergency department or call to 911. Annette Disclaimer: Annette Disclaimer: This electronic medical record was generated, in whole or in part, using a voice recognition dictation system. Departure Departure: Impression: Primary Impression: Supratherapeutic INR Additional Impression: Atrial fibrillation with RVR Disposition: 01 HOME / SELF CARE / HOMELESS Condition: STABLE Referrals: LEVAR BELTRAN MD (PCP) Follow up with your pcp in 1 day to [facility] [phone] OR [facility]-Dr. Grimes [phone] Patient Instructions: Atrial Fibrillation, [id number], Warfarin, [id number] Additional Instructions: FOLLOW UP WITH CARDIOLOGY/Dr. Pak: FOR DEFINITIVE MANAGEMENT of atrial flutter/fibrillation [facility] [address] [place] [address] OR [facility] [address] [address] EMERGENCY DEPARTMENT GENERAL DISCHARGE INSTRUCTIONS Thank you for coming to [facility] (ED) today and trusting us with you care. We trust that you had a positivie experience in our Emergency Department. If you wish to speak to the department management, you may call the director at [phone]. YOUR FOLLOW UP INSTRUCTIONS ARE FOLLOWS: 1. Do you have a private Doctor? If you do not have a private doctor, please ask for a resource list of physicians or clinics that may be able to assist you with follow up care. 2. The Emergency Physician has interpreted your x-rays. The X-Ray specialist will also review them. If there is a change in the findings, you will be notified in 48 hours when at all possible. 3. A lab test or culture has been done, your results will be reviewed and you will be notified if you need a change in treatment. ADDITIONAL INSTRUCTIONS AND INFORMATION: 1. Your care today has been supervised by a physician who is specially trained in emergency care. Many problems require more than one evaluation for a complete diagnosis and treatment. We recommend that you schedule your follow up appointment as recommended to ensure complete treatment of you illness or injury. If you are unable to obtain follow up care and continue to have a problem, or if your condition worsens, we recommend that you return to the ED. 2. We are not able to safely determine your condition over the phone nor are we able to give sound medical advice over the phone. For these safety reasons, if you call for medical advice we will ask you to come to the ED for further evaluation. 3. If you have any questions regarding these discharge instructions please call the ED at [phone]. SAFETY INFORMATION: In the interest of safety, wellness, and injury prevention; we encourage you to wear your sealbelt, if you smoke; quite smoking, and we encourage family to use a pro tective helmet for bicycling and other sporting events that present an increased risk for head injury. IF YOUR SYMPTOMS WORSEN OR NEW SYMPTOMS DEVELOP, OR YOU HAVE CONCERNS ABOUT YOUR CONDITION; OR IF YOUR CONDITION WORSENS WHILE YOU ARE WAITING FOR YOUR FOLLOW UP APPOINTMENT; EITHER CONTACT YOUR PRIMARY CARE DOCTOR, THE PHYSICIAN WHOSE NAME AND NUMBER YOU WERE GIVEN, OR RETURN TO THE ED IMMEDIATELY. Scripts No Active Prescriptions or Reported Meds REKHA LEON DO Jul 02, 2021 13:56
[2021-07-02 14:00] VITALS: BP 119/63
== END 2021-07-02 14:14 | disposition home or self-care (01) ==
LOC: ER 11:00
DX: I48.20 Chronic atrial fibrillation, unspecified (principal); F17.200 Nicotine dependence, unspecified, uncomplicated; Z88.0 Allergy status to penicillin
CPT/HCPCS: 36415; 80048; 85025; 85610; 85730; 93005; 96361; 96374; 99285; J3430; J3490; J7030